=== PATIENT | male | born 1975 | race Caucasian/White ===

== ENCOUNTER → 2018-01-12 | Outpatient (CLI) | payer BC ==
--- NOTE | 2018-01-14 13:51 | US ---
EXAMINATION TYPE: US abdomen complete DATE OF EXAM: 01/12/2018 COMPARISON: None CLINICAL HISTORY: 42-year-old male R10.9 Abdominal Pain. RLQ pain, NPO TECHNIQUE: Multiple sonographic images of the abdomen are obtained. FINDINGS: EXAM MEASUREMENTS: Liver Length: 15.5 cm Gallbladder Wall: 0.2 cm CBD: 0.3 cm CHD: 0.4 cm Spleen: 11.2 cm Right Kidney: 9.3 x 5.6 x 4.2 cm Left Kidney: 10.2 x 5.2 x 5.2 cm Pancreas: wnl Liver: wnl Gallbladder: wnl Evidence for sonographic Villarreal's sign: neg CBD: wnl Spleen: wnl Right Kidney: wnl Left Kidney: wnl Upper IVC: wnl Abd Aorta: Mid portion obscured by overlying bowel gas. The proximal and distal portions appear wnl. IMPRESSION: Unremarkable sonographic examination of the abdomen.
== END | disposition home or self-care (01) ==
LOC: RADUSWWP 07:23
PROVIDERS: ATTEND Internal Medicine
DX: R10.9 Unspecified abdominal pain (principal)
CPT/HCPCS: 76700

== ENCOUNTER → 2018-08-20 | Outpatient (CLI) | payer BC ==
[2018-08-20 08:40] LABS: Basophils % (A) 1 %; Eosinophils # (A) 0.2 k/uL (0-0.7); Eosinophils % (A) 3 %; HCT 50.1 % (39.0-53.0); HGB 16.5 gm/dL (13.0-17.5); Lymphocytes # (A) 1.6 k/uL (1.0-4.8); Lymphocytes % (A) 31 %; MCH 27.8 pg (25.0-35.0); MCV 84.3 fL (80.0-100.0); Monocytes # (A) 0.3 k/uL (0-1.0); Monocytes % (A) 6 %; Neutrophils # (A) 2.9 k/uL (1.3-7.7); Neutrophils % (A) 56 %; Platelet Count 298 k/uL (150-450); RBC 5.94 m/uL (4.30-5.90); RDW 12.9 % (11.5-15.5); WBC 5.2 k/uL (3.8-10.6)
[2018-08-20 09:05] LABS: Appearance,Urine Clear (Clear); Bilirubin,Urine Negative (Negative); Blood,Urine Negative (Negative); Color,Urine Yellow; Glucose,Urine (UA) Negative (Negative); Ketones,Urine Negative (Negative); Leukocyte Esterase,Urine Negative (Negative); Nitrite,Urine Negative (Negative); Protein,Urine Trace (Negative); Specific Gravity,Urine 1.017 (1.001-1.035); Urobilinogen,Urine <2.0 mg/dL (<2.0)
[2018-08-20 11:30] LABS: Erythrocyte Sedimentation Rate 2 mm/hr (0-15)
[2018-08-20 16:14] LABS: Vitamin D 25 Hydroxy 41.7 ng/mL (30.0-100.0)
[2018-08-20 17:00] LABS: T4, Free (Free Thyroxine) 1.4 ng/dL (0.80-1.80)
[2018-08-20 17:01] LABS: Anion Gap 12.9 mmol/L (4.00-12.00); Calcium 9.6 mg/dL (8.7-10.3); Carbon Dioxide 24.1 mmol/L (21.6-31.8); Globulin 2.5 g/dL (1.6-3.3); LDL Cholesterol,Calculated 128.6 mg/dL (0.0-131.0); Potassium 4.8 mmol/L (3.5-5.5); Total Bilirubin 0.4 mg/dL (0.3-1.2); Total Protein 7.5 g/dL (6.2-8.2); VLDL Calculation 18.4 mg/dL (5.00-40.00)
== END ==
LOC: LABWHC1 08:18
PROVIDERS: ATTEND Internal Medicine
DX: Z00.00 Encounter for general adult medical examination without abnormal findings (principal); E78.5 Hyperlipidemia, unspecified; E55.9 Vitamin D deficiency, unspecified; N40.1 Benign prostatic hyperplasia with lower urinary tract symptoms; R35.1 Nocturia; R53.1 Weakness; R53.83 Other fatigue
CPT/HCPCS: 36415; 80053; 80061; 81003; 82306; 82607; 84153; 84439; 84443; 85025; 85652

== ENCOUNTER → 2018-09-11 | Outpatient (CLI) | payer BC ==
--- NOTE | 2018-09-11 08:09 | MR ---
EXAMINATION TYPE: MR angio head wo con DATE OF EXAM: 09/11/2018 COMPARISON: NONE HISTORY: Malaise and fatigue, family hx aneurysm TECHNIQUE: Time of flight images focusing on the [place] were performed without contrast.. 2-D and 3-D postprocessing imaging is performed on MRI scanner and reviewed. FINDINGS: There is a codominant vertebrobasilar system. Vertebral arteries are patent 2-D basilar karen ction. There is no significant focal stenosis or aneurysmal change in the posterior circulation. Ther e are hypoplastic bilateral posterior communicating arteries noted. There is patent anterior communicating artery. No significant focal stenosis or aneurysmal change in the anterior circulation is present. IMPRESSION: No significant stenosis or aneurysmal change in the anterior circulation.
--- NOTE | 2018-09-11 08:32 | MR ---
EXAMINATION TYPE: MR brain wo/w con DATE OF EXAM: 09/11/2018 COMPARISON: NONE HISTORY: Malaise and fatigue, family hx aneurysm TECHNIQUE: Multiplanar, multisequence images of the brain and brainstem is performed without and with IV contras t, utilizing 9 mL intravenous Gadavist . FINDINGS: Diffusion weighted images demonstrate no evidence of a recent infarct or other diffusion ab normality. There is no extra-axial fluid collection or significant white matter signal abnormality. The ventricular system and cisternal spaces are normal in size and appearance. The brain volume is age appropriate. Midline structures demonstrate normal morphology. The craniocervical junction appears within normal limits. Post contrast images demonstrate no abnormal enhancement. The dural venous sinuses appear pa tent. Mild mucosal thickening involving ethmoid sinuses bilaterally is present otherwise paranasal si nuses are clear. Globes are intact bilaterally. Some increased fluid inferior left mastoid air cells extending towards apex is noted axial image 6. Nasal septum is deviated to left of midline. IMPRESSION: No significant white matter changes or suspicious enhancement. Possible mild left-sided m astoiditis, correlate clinically.
== END ==
LOC: RADMRIMAIN 07:05
PROVIDERS: ATTEND Internal Medicine
DX: R53.81 Other malaise (principal)
CPT/HCPCS: 70544; 70553; A9585